=== PATIENT | male | born 1990 | race Caucasian/White ===

== ENCOUNTER 2021-12-05 11:02 | Emergency (ER) | payer OTHER ==
[~2021-12-05] VITALS: Ht 193 cm; Wt 102.1 kg
--- NOTE | 2021-12-05 11:02 | NUR ---
[facility] FOR MEDICAL CLEARANCE C/O LOWER BACK PAIN. AMBULATORY DEPOSIT REFUND CLERK REQUESTING FOR A BED. WILL NOT ANSWER WHY HE HAS BACK PAIN.
[2021-12-05] MEDS ORDERED: IBUPROFEN 600 MG TABLET ONE (11:18)
[2021-12-05] MEDS ORDERED: IBUPROFEN 600 MG TABLET PO ONE (11:30)
--- NOTE | 2021-12-05 11:44 | NUR ---
MEDICALLY CLEARED. D/C TO [facility] IN STABLE CONDITION.
[2021-12-05 11:45] VITALS: BP 156/99
== END 2021-12-05 11:46 | disposition home or self-care (01) ==
LOC: ER 11:07
DX: Z02.89 Encounter for other administrative examinations (principal); F11.10 Opioid abuse, uncomplicated; M54.50 Low back pain, unspecified; I10 Essential (primary) hypertension